=== PATIENT | female | born 1980 ===

== ENCOUNTER → 2021-08-12 | Outpatient (CLI) | payer BC ==
[~2021-08-12] MED LIST: CEPH500 PO; PROM25 PO
[2021-08-13 16:11] LABS: HPV 16 Negative (Negative); HPV 18 Negative (Negative); HPV OTHER HR TYPES Negative (Negative)
== END | disposition home or self-care (01) ==
LOC: LAB SHORT 16:03
PROVIDERS: Obstetrics & Gynecology
DX: Z12.4 Encounter for screening for malignant neoplasm of cervix (principal)
CPT/HCPCS: 87624; G0123